=== PATIENT | female | born 1975 | race Caucasian/White ===

== ENCOUNTER → 2023-09-28 17:26 | Outpatient (REF) | payer OTHER, SELFPAY | LOC: WDC 17:26 | PROVIDERS: ATTENDING PHYSICIAN Obstetrics & Gynecology Gynecology; FAMILY PHYSICIAN Internal Medicine | DX: Z12.31 Encounter for screening mammogram for malignant neoplasm of breast (principal) | CPT/HCPCS: 77063; 77067 ==

== ENCOUNTER → 2023-10-23 14:17 | Outpatient (REF) | payer OTHER, SELFPAY | LOC: HWRAD 14:17 | PROVIDERS: ATTENDING PHYSICIAN Nurse Practitioner | DX: J01.10 Acute frontal sinusitis, unspecified (principal); J45.20 Mild intermittent asthma, uncomplicated | CPT/HCPCS: 71046 ==

== ENCOUNTER → 2024-10-07 15:36 | Outpatient (REF) | payer OTHER, SELFPAY | LOC: HWWDC 15:36 | PROVIDERS: ATTENDING PHYSICIAN Obstetrics & Gynecology Gynecology; FAMILY PHYSICIAN Internal Medicine | DX: Z12.31 Encounter for screening mammogram for malignant neoplasm of breast (principal) | CPT/HCPCS: 77063; 77067 ==